=== PATIENT | female | born 1945 | race Caucasian/White ===

== ENCOUNTER 2018-11-13 09:38 | Outpatient (REF) | payer MEDICARE, BC, SELFPAY ==
[2018-11-13 21:57] LABS: Calculated LDL 87 mg/dL; Cholesterol 228 mg/dL (50-200); HDL Cholesterol 130 mg/dL (40-60); Triglyceride 58 mg/dL (30-150)
== END 2018-11-13 09:58 ==
LOC: NCHCN 09:38
PROVIDERS: PCP Internal Medicine; Visit Provider Internal Medicine
DX: E78.89 Other lipoprotein metabolism disorders (principal); Z13.6 Encounter for screening for cardiovascular disorders
CPT/HCPCS: 80061; 83721

== ENCOUNTER 2020-05-24 20:47 | Outpatient (REF) | payer MEDICARE, BC, SELFPAY ==
[2020-05-24 22:01] LABS: ALT 22 U/L (14-59); AST 17 U/L (15-37); Albumin 3.8 g/dL (3.4-5.0); Alkaline Phosphatase 70 U/L (46-116); Anion Gap 7.7 mmol/L (3-11); BUN 14 mg/dL (7-18); Bilirubin, Total 0.9 mg/dL (0.2-1.0); CO2 28.3 mmol/L (21.0-32.0); CREATININE 0.6 mg/dL (0.55-1.02); Calcium 8.7 mg/dL (8.5-10.1); Chloride 102 mmol/L (98-107); Glucose 94 mg/dL (74-106); Potassium 4.1 mmol/L (3.5-5.1); Sodium 138 mmol/L (136-145); TSH 1.44 uIU/mL (0.36-3.74); Total Protein 7.4 g/dL (6.4-8.2)
[2020-05-24 22:16] LABS: Abs Immature Grans 0.01 10^3/uL (0.0-0.06); Absolute Basophil Count 0.04 10^3/uL (0.0-0.2); Absolute Lymphocyte Count 0.89 10^3/uL (1.2-3.4); Absolute Monocyte Count 0.32 10^3/uL (0.1-0.8); Absolute Neutrophil Count 2.05 10^3/uL (1.2-6.7); Basophils % 1.2; Eosinophils % 2.9; HCT 40.2 % (36.0-46.0); HGB 13.5 g/dL (11.2-15.7); Immature Grans % 0.3; Lymphocytes % 26.1; MCH 33.3 pg (27.0-33.0); MCHC 33.6 % (32.0-36.0); Monocytes % 9.4; Neutrophils % 60.1; Nucleated RBC 0 %; Platelet Count 235 10^3/uL (130-400); RBC 4.06 10^6/uL (3.93-5.22); RDW 12.5 % (11.7-14.6); RDW-SD 44.9 fL; WBC 3.41 10^3/uL (4.4-10.8)
== END 2020-05-24 20:48 | disposition home or self-care (01) ==
LOC: NCHCN 20:47
PROVIDERS: PCP Internal Medicine; Visit Provider Internal Medicine
DX: R00.2 Palpitations (principal)
CPT/HCPCS: 80053; 84443; 85025

== ENCOUNTER 2023-10-09 15:04 | Outpatient (REF) | payer MEDICARE, BC, SELFPAY ==
[2023-10-09 21:55] LABS: ALT 28 U/L (14-59); AST 22 U/L (15-37); Albumin 3.8 g/dL (3.4-5.0); Alkaline Phosphatase 84 U/L (46-116); BUN 10 mg/dL (7-18); Bilirubin, Total 0.87 mg/dL (0.2-1.0); CREATININE 0.8 mg/dL (0.55-1.02); Calcium 8.6 mg/dL (8.5-10.1); Chloride 100 mmol/L (98-107); Estimated GFR 75.84 (mL/min/1.73m2); Glucose 95 mg/dL (74-106); Potassium 4.6 mmol/L (3.5-5.1); Sodium 135 mmol/L (136-145); Total Protein 7.3 g/dL (6.4-8.2)
[2023-10-09 22:38] LABS: Vitamin B12 1158 pg/mL (193-986)
[2023-10-09 23:51] LABS: Abs Immature Grans 0.01 10^3/uL (0.0-0.06); Absolute Basophil Count 0.03 10^3/uL (0.0-0.2); Absolute Eosinophil Count 0.06 10^3/uL (0.0-0.7); Absolute Lymphocyte Count 0.58 10^3/uL (1.2-3.4); Absolute Monocyte Count 0.36 10^3/uL (0.1-0.8); Absolute Neutrophil Count 1.45 10^3/uL (1.2-6.7); Basophils % 1.2 %; Eosinophils % 2.4 %; HCT 31.6 % (36.0-46.0); HGB 10.9 g/dL (11.2-15.7); Immature Grans % 0.4 %; Lymphocytes % 23.3 %; MCH 35.9 pg (27.0-33.0); MCV 104 fL (80-95); Monocytes % 14.5 %; Neutrophils % 58.2 %; Platelet Count 137 10^3/uL (130-400); RBC 3.04 10^6/uL (3.93-5.22); RDW 12.3 % (11.7-14.6); WBC 2.49 10^3/uL (4.4-10.8)
[2023-10-10] LABS: MCHC 34.5 % (32.0-36.0)
== END 2023-10-09 15:05 | disposition home or self-care (01) ==
LOC: NCHCN 15:04
PROVIDERS: PCP Internal Medicine; Visit Provider Internal Medicine
DX: E53.8 Deficiency of other specified B group vitamins (principal); E87.1 Hypo-osmolality and hyponatremia; D72.819 Decreased white blood cell count, unspecified
CPT/HCPCS: 80053; 82607; 85025

== ENCOUNTER 2023-10-10 16:16 | Outpatient (REF) | payer MEDICARE, BC, SELFPAY ==
[2023-10-10 16:37] LABS: LDH 204 U/L (81-234)
[2023-10-10 16:56] LABS: HCT 33.4 % (36.0-46.0); HGB 11.9 g/dL (11.2-15.7); MCH 39.1 pg (27.0-33.0); MCHC 35.6 % (32.0-36.0); MPV 9.7 fL (8.0-11.0); Platelet Count 343 10^3/uL (130-400); RBC 3.04 10^6/uL (3.93-5.22); RDW 16.5 % (11.7-14.6); RDW-SD 46.6 fL
[2023-10-10 17:29] LABS: Abs Immature Grans 0.01 10^3/uL (0.0-0.06); Absolute Basophil Count 0.02 10^3/uL (0.0-0.2); Absolute Eosinophil Count 0.05 10^3/uL (0.0-0.7); Absolute Lymphocyte Count 0.45 10^3/uL (1.2-3.4); Absolute Monocyte Count 0.21 10^3/uL (0.1-0.8); Absolute Neutrophil Count 1.11 10^3/uL (1.2-6.7); Basophils % 1.1 %; Eosinophils % 2.7 %; Immature Grans % 0.5 %; Lymphocytes % 24.3 %; Monocytes % 11.4 %
[2023-10-10 17:31] LABS: MCV 110 fL (80-95); WBC 1.85 10^3/uL (4.4-10.8)
[2023-10-11 10:05] LABS: Haptoglobin 136 mg/dL (32-197)
== END 2023-10-10 16:17 | disposition home or self-care (01) ==
LOC: NCHCN 16:16
PROVIDERS: PCP Internal Medicine; Visit Provider Internal Medicine
DX: D64.9 Anemia, unspecified (principal)
CPT/HCPCS: 85027; 83010; 83615; 85025; 85045

== ENCOUNTER 2024-12-08 16:22 | Outpatient (REF) | payer MEDICARE, BC, SELFPAY | END 2024-12-08 16:23 | disposition home or self-care (01) | LOC: NCHCN 16:22 | PROVIDERS: PCP Internal Medicine; Visit Provider Family Medicine | DX: J02.0 Streptococcal pharyngitis (principal) | CPT/HCPCS: 87070 ==